=== PATIENT | female | born 1940 | race Caucasian/White ===

== ENCOUNTER → 2017-05-26 09:01 | Outpatient (CLI) | payer MEDICARE, OTHER, SELFPAY ==
[2017-05-26 11:05] LABS: Anion Gap 8 (5-15); BUN 14 mg/dL (7-18); BUN/Creat Ratio 19.6 RATIO (10-20); Chloride 104 mmol/L (98-107); Creatinine, Serum 0.71 mg/dL (0.55-1.02); EST Glomerular Filtration Rate 84 mL/min (>60); Est Glom Filt Rate - Afr Amer 102 mL/min (>60); Glucose 116 mg/dL (74-106); Potassium 3.6 mmol/L (3.5-5.1); Sodium Level 139 mmol/L (136-145)
== END ==
PROVIDERS: Family Provider Internal Medicine; PCP Internal Medicine; Visit Provider Internal Medicine
DX: E87.8 Other disorders of electrolyte and fluid balance, not elsewhere classified (principal)
CPT/HCPCS: 36415; 80048

== ENCOUNTER → 2020-10-12 15:15 | Outpatient (CLI) | payer MEDICARE, OTHER, SELFPAY ==
--- NOTE | 2020-10-12 15:25 | RAD_ITS ---
STUDY: X-RAY - LUMBAR SPINE REASON FOR EXAM: Female, 80 years old. BACK PAIN TECHNIQUE: 2 view(s) of the lumbar spine were obtained. COMPARISON: None FINDINGS: There is straightening of the normal lumbar lordosis. There is a minimal levoscoliosis of the lumbar spine. There is a normal alignment of the vertebrae. There is multilevel endplate spondylosis of the lumbar vertebrae. There is multi-level degenerative disc disease with multi-level disc space narrowing. Facet joint osteoarthritis. Degenerative changes of the sacroiliac joints. There is atherosclerotic calcification of the abdominal aorta without a demonstrated aneurysm. RAD/Lumbar Spine 2 or 3 Views IMPRESSION: Degenerative changes of the spine, as detailed above. Electronically Signed: Bakari Doherty MD at 9:38 EDT , Service support ,
== END ==
PROVIDERS: PCP Nurse Practitioner Adult Health; Referring Provider Anesthesiology Pain Medicine; Visit Provider Anesthesiology Pain Medicine
DX: M47.816 Spondylosis without myelopathy or radiculopathy, lumbar region (principal); M51.36 Other intervertebral disc degeneration, lumbar region; M48.061 Spinal stenosis, lumbar region without neurogenic claudication
CPT/HCPCS: 72100

== ENCOUNTER 2021-03-11 02:18 | Inpatient (IN) | payer MEDICARE, OTHER, SELFPAY ==
[2021-03-11] VITALS (15 sets, daily range): BP systolic 140–170; BP diastolic 80–100; PULSE 73–89; RESP 18–28; TEMP 36.1–36.6; O2SAT 88–97; BMI 16.5; BMI 16.0
--- NOTE | 2021-03-11 02:34 | EKG12_ITS ---
Test Reason : SOB Blood Pressure : / mmHG Vent. Rate : 085 BPM Atrial Rate : 085 BPM P-R Int : 112 ms QRS Dur : 072 ms QT Int : 338 ms P-R-T Axes : 075 050 062 degrees QTc Int : 402 ms Normal sinus rhythm Normal ECG Confirmed by JHONATHAN MARTÍNEZ, ECHO ([id number]), graphics editor SO POOLE ([id number]) on 03/12/2021 9:38:16 AM Referred By: PL Confirmed By:ECHO RING MD
--- NOTE | 2021-03-11 02:36 | ED.VIS.DYS ---
HPI History of Present Illness Chief Complaint: Shortness of Breath Informant: patient and family Narrative Narrative: It is hard to get some of the details out of this patient. She tends to give very short one-word answers to many even complex questions. History is obtained through both her and her son. This patient reports a history of bronchiectasis. However, I cannot get from her exactly how and when this was diagnosed. She does not know what medicines help it get better. She was in the hospital at [facility] for about 10 days recently. She was discharged about 2 weeks ago. She was evidently discharged on an inhaled antibiotic or possible antifungal. She was tested for Covid and it was negative. She has been vaccinated. She denies chest pain. She is on 2 L of home oxygen but that is new since discharge. She called EMS tonight because her breathing was getting worse. Has been worsening for several days. Her energy level is significantly down. Her breathing is worse despite home treatments. PFSH PFS Medical History Arthritis Cataracts, bilateral Hearing problem HTN (hypertension) IBS (irritable bowel syndrome) Rheumatoid arthritis Skin cancer Home Medications aspirin 81 mg PO DAILY@0800 07/13/16 [History Last Taken 07/12/16] coenzyme Q10 [Co Q-10] 100 mg PO DAILY 07/13/16 [History Last Taken 07/12/16] amiloride 5 mg-hydrochlorothiazide 50 mg tablet 0.5 tab PO QDAY #90 tab 07/07/17 [Rx Last Taken Unknown] nadolol 40 mg tablet 40 mg PO QDAY #90 tab 10/06/17 [Rx Last Taken Unknown] albuterol sulfate 2 puff INHALATION Q6H PRN 03/11/21 [History Last Taken Unknown] diltiazem HCl [Cardizem CD] 120 mg PO DAILY 03/11/21 [History Last Taken Unknown] Allergy/AdvReac Type Severity Reaction Status Date / Time levofloxacin [From Levaquin] Allergy Other Verified 03/11/21 02:25 Sulfa (Sulfonamide Allergy Swelling Verified 03/11/21 02:25 Antibiotics) narcotics AdvReac Mild Vomiting Uncoded 03/11/21 02:25 Family History Mother Myocardial infarction Father CVA (cerebral vascular accident) Social History Smoking Status: Former smoker alcohol intake: never substance use type: does not use what type of physical activity do you participate in: none ROS ROS ED Constitutional Constitutional ED: Denies chills or fever(s) ENT ENT ED: Denies rhinorrhea or sore throat Cardiovascular Cardiovascular: Denies chest pain Respiratory/Chest Respiratory/Chest: Reports cough, dyspnea, dyspnea on exertion and sputum Gastrointestinal Gastrointestinal: Denies diarrhea, nausea or vomiting Genitourinary Genitourinary ED: Denies dysuria Musculoskeletal Musculoskeletal: Denies myalgias Integumentary Denies rash Neurologic Neurologic: Denies headache(s) Endocrine Endocrinology: Denies polyuria Hematologic/Lymphatic Hematologic/Lymphatic: Denies easy bleeding or easy bruising Allergic/Immunologic Allergic/Immunologic ED: Denies mouth swelling or urticaria EXAM Physical Exam Const Vital Signs: 03/11/21 02:19 03/11/21 02:30 03/11/21 02:53 Temperature 97.8 F Temperature Source Temporal Pulse Rate 88 85 Respiratory Rate 20 H 21 H Respiratory Effort Normal Respiratory Pattern Tachypnea Blood Pressure 169/100 H Blood Pressure Mean 123 Pulse Ox 93 Oxygen Delivery Method Nasal Cannula Oxygen Flow Rate (L/min) 5 03/11/21 03:30 03/11/21 03:49 Temperature 97.9 F Temperature Source Temporal Pulse Rate 89 84 Respiratory Rate 28 H 23 H Respiratory Effort Respiratory Pattern Blood Pressure 170/99 H 140/80 H Blood Pressure Mean 122 100 Pulse Ox 94 92 Oxygen Delivery Method Nasal Cannula Nasal Cannula Oxygen Flow Rate (L/min) 4 4 Positive cachectic Constitutional Narrative: Patient looks thin and chronically ill. She also looks weak. She looks a bit worn out. She does have increased work of breathing. She is not sleepy or lethargic. General Appearance ED: cachectic Nutritional Appearance: cachectic HEENT atraumatic Eyes EOMs intact bilaterally Neck no meningeal signs and no JVD Resp Resp Narrative: Patient has diffuse coarse breath sounds. She has a very moist cough. Auscultation: rhonchi Cardio regular rate and regular rhythm GI non-tender Palpation: soft Back/Spine no CVA tenderness Extremity normal to inspection General Extremety ED: Negative for edema or tenderness General Extremity: Negative for edema Neuro oriented x3 Sensorium / Orientation: alert Psych mental status grossly normal Skin Rashes: no rashes MDM MDM MDM Narrative Medical decision making narrative: Patient's blood work show a high white count. However this is common for the patient based on some older labs. Electrolytes showed mild increased BUN to creatinine ratio but creatinine was normal. Troponin is negative. Lactate is normal. Covid test was positive at this time. Chest x-ray shows multilobar pneumonia. This might be due to Covid but also her bronchiectasis history likely contributes to this. I talk with her and her son. This patient is very weak. She is not really able to care for herself at home. She does live independently. She uses a Rollator to get around but this is been hard. Her appetite has been down. I do not think this patient would do well at home. She is on 2 L at home normally but she is now on 4-5 L nasal cannula here. I discussed case with the hospitalist. Patient also is not to be intubated. The son is bringing in her DNR paperwork at home which hopefully has more details also. Lab Data Attestation: I reviewed the patient's lab results. Labs: Laboratory Results - last 24 hr 03/11/21 03/11/21 03/11/21 02:40 02:40 02:40 WBC 17.3 H RBC 3.75 L Hgb 10.7 L Hct 34.2 L MCV 91.2 MCH 28.5 MCHC 31.3 L RDW Std Deviation 55.1 H RDW Coeff of Pk 16.9 H Plt Count 513 H MPV 9.6 Immature Gran % (Auto) 0.600 Neut % (Auto) 79.1 H Lymph % (Auto) 11.1 L [place] % (Auto) 8.3 Eos % (Auto) 0.5 Baso % (Auto) 0.4 Absolute Neuts (auto) 13.7 H Absolute Lymphs (auto) 1.92 Nucleated RBC % 0.1 Sodium 136 Potassium 3.9 Chloride 95 L Carbon Dioxide 35.0 H Anion Gap 6 BUN 10 Creatinine 0.38 L Estim Creat Clear Calc 29.53 Est GFR (MDRD) Af Amer 211 Est GFR (MDRD) Non-Af 175 BUN/Creatinine Ratio 26.6 H Glucose 146 H Lactic Acid 1.4 Calcium 9.3 Troponin I High Sens 10 Radiography Diagnostic Testing: Clinical Impression(s) from Imaging Studies Chest X-Ray 03/11/21 03:15 IMPRESSION: Bilateral multilobar pneumonia. Follow to resolution. Electronically Signed: Osvaldo Armenta MD at 3:31 EST Tel , Service support , EKG Initial EKG: Comments: EKG done for dyspnea read by me shows sinus rhythm with overall rate of 85. No ectopy. No acute ST elevation or depression. [place] interval, QRS duration and QTc normal. The EKG is similar to prior from 14 July 2016. Discharge Plan Dx/Rx/DC Orders Clinical Impression: Acute and chronic respiratory failure with hypoxia, Pneumonia due to 2019 novel coronavirus, Declining functional status Disposition Disposition: Acute Care Hospital [facility]
[2021-03-11] MEDS: MethylPREDNISolone 125 MG/2 ML Vial IV (02:42)
[2021-03-11 02:52] LABS: Absolute Lymphocyte Count 1.92 X10^3/uL (0.83-4.51); Absolute Neutrophil Count 13.7 X10^3/uL (2.0-7.7); Basophil# 0.07 X10^3/uL; Basophil% 0.4 % (0-1); Eosinophil# 0.09 X10^3/uL; Eosinophils% 0.5 % (0-5); Hematocrit 34.2 % (37-47); Hemoglobin 10.7 g/dL (12.0-15.0); Lymphocyte # 1.92 X10^3/ul (0.83-4.51); Lymphocyte % 11.1 % (19-41); Mean Corp Hgb Conc 31.3 g/dL (32-36); Mean Corpuscular Hgb 28.5 pg (27.0-32.0); Mean Corpuscular Volume 91.2 fL (81-99); Mean Platelet Vol. 9.6 fl (6.2-12.0); Monocyte# 1.44 X10^3/uL; Monocyte% 8.3 % (0-10); NRBC Flagged by Analyzer 0.1 % (0-5); Neutrophil # 13.67 X10^3/uL (2.7-7.7); Neutrophil % 79.1 % (47-70); Platelet Count 513 K/mm3 (150-450); RBC Distribution Width CV 16.9 % (11.6-14.6); RBC Distribution Width SD 55.1 fl (35.1-43.9); Red Blood Count 3.75 M/mm3 (4.2-5.4); White Blood Count 17.3 K/mm3 (4.4-11.0)
[2021-03-11] MEDS: Albuterol 2.5 MG/3 ML VIAL.NEB. INHALATION (02:53)
[2021-03-11] MEDS: Ipratropium/Albuterol Sulfate 3 ML AMPUL.NEB INHALATION ×2 (02:53→16:49)
--- NOTE | 2021-03-11 03:15 | RAD_ITS ---
EXAM: XR CHEST, 1 VIEW CLINICAL INDICATION: cough TECHNIQUE: Frontal view of the chest. This report was created using [employer] report generation technology. COMPARISON: None. FINDINGS: LUNGS AND PLEURAL SPACES: Bilateral multilobar pneumonia. No significant pleural effusion or pneumothorax. Dilated central pulmonary arteries suggest pulmonary hypertension. HEART: Unremarkable. Cardiac silhouette not enlarged. MEDIASTINUM: Central airways and mediastinal contour are unremarkable. BONES/JOINTS: Degenerative changes of the spine. No unusual lytic or sclerotic lesions of bone. SOFT TISSUES: Unremarkable. VASCULATURE: Atherosclerotic calcifications of the nonenlarged thoracic arch. RAD/Chest 1 View (Portable) IMPRESSION: Bilateral multilobar pneumonia. Follow to resolution. Electronically Signed: Osvaldo Armenta MD at 3:31 EST Tel , Service support ,
[2021-03-11 03:18] LABS: Anion Gap 6 (5-15); BUN 10 mg/dL (7-18); BUN/Creat Ratio 26.6 RATIO (10-20); Calcium,Total 9.3 mg/dL (8.5-10.1); Chloride 95 mmol/L (98-107); Creatinine, Serum 0.38 mg/dL (0.55-1.02); EST Glomerular Filtration Rate 175 mL/min (>60); Est Glom Filt Rate - Afr Amer 211 mL/min (>60); Estimated Creatinine Clearance 29.53 ml/min; Glucose 146 mg/dL (74-106); Potassium 3.9 mmol/L (3.5-5.1); Sodium Level 136 mmol/L (136-145); Troponin-I HS 10 pg/mL (3.0-54.0)
[2021-03-11 03:26] LABS: Lactic Acid 1.4 mmol/L (0.4-1.9)
[2021-03-11] MEDS: dexAMETHasone 4 MG/ML Vial 6 MG IV ×2 (03:27→10:07)
--- NOTE | 2021-03-11 05:03 | HP.PCM.HOS_ITS ---
HPI - General General Date of Admission: 03/11/21 Date of Service: 03/11/21 Chief Complaint: Increased shortness of breath x2 days, cough HPI Narrative ERICKA SMITH, is a 80 F who presents to the emergency room at [facility] with chief complaint of increased shortness of breath over the last 2 to 3 days, she is on chronic oxygen at home for bronchiectasis, she was recently in [facility] in [facility] 2 weeks ago for pneumonia. Patient denies any chills, she also complained of generalized weakness however. Labs done in the emergency room include a CBC which shows an elevated white blood cell count at 17.3, hemoglobin was 10.7, chemistry profile was remarkable for glucose of 146, and patient's rapid Covid test was positive-patient is vaccinated for COVID-19. Chest x-ray shows bilateral multilobar pneumonia. Patient states she does not want intubation or resuscitation, she will be admitted to [facility] for COVID-19 pneumonia and acute on chronic respiratory failure. Patient states she is not opposed to taking remdesivir. [facility] Medical History Arthritis Cataracts, bilateral Hearing problem HTN (hypertension) IBS (irritable bowel syndrome) Rheumatoid arthritis Skin cancer Home Medications aspirin 81 mg PO DAILY@0800 07/13/16 [History Last Taken 07/12/16] coenzyme Q10 [Co Q-10] 100 mg PO DAILY 07/13/16 [History Last Taken 07/12/16] amiloride 5 mg-hydrochlorothiazide 50 mg tablet 0.5 tab PO QDAY #90 tab 07/07/17 [Rx Last Taken Unknown] nadolol 40 mg tablet 40 mg PO QDAY #90 tab 10/06/17 [Rx Last Taken Unknown] albuterol sulfate 2 puff INHALATION Q6H PRN 03/11/21 [History Last Taken Unknown] diltiazem HCl [Cardizem CD] 120 mg PO DAILY 03/11/21 [History Last Taken Unknown] Allergy/AdvReac Type Severity Reaction Status Date / Time levofloxacin [From Levaquin] Allergy Other Verified 03/11/21 02:25 Sulfa (Sulfonamide Allergy Swelling Verified 03/11/21 02:25 Antibiotics) narcotics AdvReac Mild Vomiting Uncoded 03/11/21 02:25 Family History Mother Myocardial infarction Father CVA (cerebral vascular accident) Social History Smoking Status: Former smoker alcohol intake: never substance use type: does not use what type of physical activity do you participate in: none ROS Constitutional Constitutional: Reports fatigue, malaise and weakness; Denies anorexia, change in weight, fever(s) or night sweats Eyes Eyes: Denies blurry vision, change in vision, discharge from eye(s) or eye pain ENT HEENT: Denies abnormal hearing or dysphagia Cardiovascular Cardiovascular: Reports dyspnea on exertion; Denies chest pain, claudication, edema, lightheadedness, orthopnea or palpitations Respiratory/Chest Respiratory/Chest: Reports cough, shortness of breath at rest and shortness of breath with exertion; Denies hemoptysis Gastrointestinal Gastrointestinal: Denies abdominal pain, constipation, diarrhea, hematemesis, hematochezia, melena, nausea or vomiting Genitourinary Genitourinary: Denies dysuria, hematuria, urinary frequency, urinary hesitancy, urinary incontinence or urinary urgency Musculoskeletal Musculoskeletal: Denies back pain, joint pain, joint stiffness, joint swelling, myalgias or neck pain Neurologic Neurologic: Denies abnormal gait, abnormal speech, confusion, dizziness, focal weakness, headache(s), loss of vision, numbness, other visual disturbances, paresthesias, syncope or tingling Psychiatric Psychiatric: Denies anxiety, cognitive impairment, depression, irritability, mood swings or suicidal ideation Endocrine Endocrinology: Denies change in body appearance, cold intolerance, excessive sweating, heat intolerance, polydipsia or polyuria Hematologic/Lymphatic Hematologic/Lymphatic: Denies none, anemia, easy bleeding, easy bruising or lymphadenopathy Allergic/Immunologic Allergic/Immunologic: Denies rhinitis, urticaria, eczemia or asthma Vital Signs Vital Signs Vital Signs: 03/11/21 02:19 03/11/21 02:30 03/11/21 02:53 Temperature 97.8 F Temperature Source Temporal Pulse Rate 88 85 Respiratory Rate 20 H 21 H Respiratory Effort Normal Respiratory Pattern Tachypnea Blood Pressure 169/100 H Blood Pressure Mean 123 Pulse Ox 93 Oxygen Delivery Method Nasal Cannula Oxygen Flow Rate (L/min) 5 03/11/21 03:30 03/11/21 03:49 Temperature 97.9 F Temperature Source Temporal Pulse Rate 89 84 Respiratory Rate 28 H 23 H Respiratory Effort Respiratory Pattern Blood Pressure 170/99 H 140/80 H Blood Pressure Mean 122 100 Pulse Ox 94 92 Oxygen Delivery Method Nasal Cannula Nasal Cannula Oxygen Flow Rate (L/min) 4 4 Weight Weight: 42.4 kg Body Mass Index (BMI) 16.5 Physical Exam Const alert, oriented x3 and no apparent distress Constitutional Narrative: Patient appears frail and older than her stated age General Appearance: cooperative, well kempt and well developed Orientation / Consciousness: awake, oriented to person, oriented to place and oriented to time HEENT normocephalic, head/scalp atraumatic, hearing grossly normal bilaterally and moist oral mucous membranes Eyes PERRL, EOMs intact bilaterally and conjunctivae normal Neck nuchal rigidity, supple, no JVD, thyroid normal and no carotid bruits General: trachea midline Resp no retractions and no use of accessory muscles Resp Narrative: Patient has expiratory rhonchi over all lung esparza Auscultation: Negative for rales, rhonchi or wheezes Cardio regular rate, regular rhythm, S1 normal heart sound, S2 normal heart sound, no murmurs, no rub and no gallops GI normal to inspection, nondistended, normoactive bowel sounds, soft to palpation, non-tender and non-distended Extremity no clubbing, cyanosis or edema Skin no rashes or lesions noted and skin turgor normal Skin Narrative: Patient has a stage II pressure injury over her coccyx area, this is approximately 1 cm in diameter, edges appear sharp and there does not appear to be any drainage from the area, patient also has a pressure injury area over her left heel/ankle area approximately half centimeter in diameter General Skin Exam: no breakdown Neuro oriented x3, CN's II-XII intact bilaterally, no focal motor deficits and no sensory deficits noted Sensorium / Orientation: awake and alert Speech: speech normal Psych thought process normal and affect normal Results Lab / Micro Data Result Diagrams: 03/11/21 02:40 03/11/21 02:40 Labs: Laboratory Results - last 24 hr 03/11/21 02:40: WBC 17.3 H, RBC 3.75 L, Hgb 10.7 L, Hct 34.2 L, MCV 91.2, MCH 28.5, MCHC 31.3 L, RDW Std Deviation 55.1 H, RDW Coeff of Pk 16.9 H, Plt Count 513 H, MPV 9.6, Immature Gran % (Auto) 0.600, Neut % (Auto) 79.1 H, Lymph % (Auto) 11.1 L, [place] % (Auto) 8.3, Eos % (Auto) 0.5, Baso % (Auto) 0.4, Absolute Neuts (auto) 13.7 H, Absolute Lymphs (auto) 1.92, Nucleated RBC % 0.1 03/11/21 02:40: Sodium 136, Potassium 3.9, Chloride 95 L, Carbon Dioxide 35.0 H, Anion Gap 6, BUN 10, Creatinine 0.38 L, Estim Creat Clear Calc 29.53, Est GFR (MDRD) Af Amer 211, Est GFR (MDRD) Non-Af 175, BUN/Creatinine Ratio 26.6 H, Glucose 146 H, Calcium 9.3, Troponin I High Sens 10 03/11/21 02:40: Lactic Acid 1.4 Micro: Microbiology 03/11/21 02:37 Nasal Secretion SARS-CoV-2 Antigen (Rapid) - Final SARS-CoV-2 (COVID 19) Radiology Impression Chest X-Ray 03/11/21 03:15 IMPRESSION: Bilateral multilobar pneumonia. Follow to resolution. Electronically Signed: Osvaldo Armenta MD at 3:31 EST Tel , Service support , Assessment & Plan Assessment/Plan (1) Pneumonia due to 2019 novel coronavirus: PLAN: 1. COVID-19 pneumonia-patient will be admitted to [facility] 3, she will receive IV remdesivir and IV dexamethasone. #2 acute on chronic hypoxic respiratory failure-patient's pulse ox will be roro tored, patient does not want to be intubated, she does not want to be resuscitated. #3 essential hypertension #4 pressure ulcerations of the sacrum and left ankle area-DuoDERM will be placed over these areas #5 generalized debility-patient will be seen by PT and OT Charges/Coding Visit Charges Inpatient E&M: 36042 Init Hosp L3
[2021-03-11] MEDS: Ondansetron 4 MG/2 ML Vial IV (06:56)
[2021-03-11] MEDS: 0.9% Saline Lock 10 ML Syringe IV ×2 (06:57→07:53)
[2021-03-11] MEDS: dilTIAZem CD 120 MG Capsule PO (10:07)
[2021-03-11] MEDS: Nadolol 40 MG Tablet PO (10:07)
--- NOTE | 2021-03-11 11:39 | PN.HOSP_ITS ---
Subjective Subjective Patient seen and examined. She was admitted in the early hours of this morning with a complaint of shortness of breath, and is being managed for acute on chronic hypoxic respiratory failure due to covid. Patient had no complaints at time of review. Shortness of breath is improving. Review of systems is otherwise negative. She is on 4L of oxygen; she is usually on 2L at home. Objective Data Objective Data Vital Signs: Vital Signs Temp Pulse Resp BP Pulse Ox 97.0 F L 88 22 H 150/80 H 95 03/11/21 10:17 03/11/21 10:17 03/11/21 10:17 03/11/21 10:03/11/21 11:21 Oxygen Flow Rate (L/min) 4 Oxygen Delivery Method Non-Rebreather @ 15L/min Weight: 90 lb 2.705 oz Body Mass Index (BMI) 16.0 Intake & Output: Intake and Output for Last 24 Hours 03/09/21 03/10/21 03/11/21 23:59 23:59 23:59 Intake Total 250 / 250 Output Total 100 / 100 Balance 150 / 150 Lab / Micro Data Result Diagrams: 03/11/21 02:40 03/11/21 02:40 Labs: Laboratory Results - last 24 hr 03/11/21 02:40: WBC 17.3 H, RBC 3.75 L, Hgb 10.7 L, Hct 34.2 L, MCV 91.2, MCH 28.5, MCHC 31.3 L, RDW Std Deviation 55.1 H, RDW Coeff of Pk 16.9 H, Plt Count 513 H, MPV 9.6, Immature Gran % (Auto) 0.600, Neut % (Auto) 79.1 H, Lymph % (Auto) 11.1 L, [place] % (Auto) 8.3, Eos % (Auto) 0.5, Baso % (Auto) 0.4, Absolute Neuts (auto) 13.7 H, Absolute Lymphs (auto) 1.92, Nucleated RBC % 0.1 03/11/21 02:40: Sodium 136, Potassium 3.9, Chloride 95 L, Carbon Dioxide 35.0 H, Anion Gap 6, BUN 10, Creatinine 0.38 L, Estim Creat Clear Calc 29.53, Est GFR (MDRD) Af Amer 211, Est GFR (MDRD) Non-Af 175, BUN/Creatinine Ratio 26.6 H, Glucose 146 H, Calcium 9.3, Troponin I High Sens 10 03/11/21 02:40: Lactic Acid 1.4 Micro: Microbiology 03/11/21 02:37 Nasal Secretion SARS-CoV-2 Antigen (Rapid) - Final SARS-CoV-2 (COVID 19) Radiography Diagnostic Testing: Radiology Impression Chest X-Ray 03/11/21 03:15 IMPRESSION: Bilateral multilobar pneumonia. Follow to resolution. Electronically Signed: Osvaldo Armenta MD at 3:31 EST Tel , Service support , Physical Exam Const alert, oriented x3 and no apparent distress Exam Limitations: no limitations Nutritional Appearance: cachectic HEENT head/scalp atraumatic and moist oral mucous membranes Head and Scalp: normocephalic Eyes PERRL Neck no lymphadenopathy and supple Resp Resp Narrative: diminished breath sounds bibasally, no wheezes or crackles. On 4L of oxygen. Cardio regular rate, regular rhythm, S1 normal heart sound and S2 normal heart sound GI normal to inspection, nondistended, normoactive bowel sounds, soft to palpation, non-tender and non-distended Extremity normal to inspection, full ROM and no clubbing, cyanosis or edema Peripheral Pulses: Yes pulses 2+ throughout Skin no rashes or lesions noted Neuro oriented x3, CN's II-XII intact bilaterally and moves all extremities Sensorium / Orientation: awake and alert Psych affect normal Assessment & Plan Assessment/Plan (1) Acute and chronic respiratory failure with hypoxia: (2) Pneumonia due to 2019 novel coronavirus: PLAN: #Acute on chronic hypoxic respiratory failure due to COVID 19 pneumonia * currently on 4L of oxygen, with baseline of 2L of oxygen usually * on decadron and remdesivir * titrate oxygen to maintain sats .90% * breathing treatment with bronchodilators * #Hypertension:on amiloride/HCTZ #Afib: on cardizem. #Pressure ulcers: present on admission. on sacrum and left ankle. Consult wound care #Severe malnutrition * BMI is 16. Consult nutrition. * #Debility due to COVID nad general illness: PT/OT on board. Fall precautions. DVT prophylaxis: heparin
--- NOTE | 2021-03-11 12:13 | PCS.PANDOC ---
PANDEMIC DOCUMENTATION INITIATED: Date: 03/11/21 Time: 0700
[2021-03-11] MEDS: Heparin Injection (Vial) 5,000 UNIT/ML VIAL 5000 UNIT SC ×2 (14:59→21:02)
--- NOTE | 2021-03-11 20:22 | NURSING ---
Pt C/O generalized arthritic pain. Only has tylenol ordered prn which pt states does not help. States she takes hydrocodone @ home prn. Dr García notified & new order received.
[2021-03-11] MEDS: HYDROcodone Bitartrate/Apap 5/325 Tablet PO (20:46)
--- NOTE | 2021-03-11 20:50 | NURSING ---
O2 INCREASED TO 5L NC
[2021-03-12] VITALS (13 sets, daily range): BP systolic 147–191; BP diastolic 66–99; PULSE 78–86; RESP 18–30; TEMP 36.2–36.3; O2SAT 92–99
[2021-03-12] MEDS: Ipratropium/Albuterol Sulfate 3 ML AMPUL.NEB INHALATION ×4 (01:38→22:54)
[2021-03-12] MEDS: Heparin Injection (Vial) 5,000 UNIT/ML VIAL 5000 UNIT SC ×3 (05:34→20:14)
[2021-03-12 06:45] LABS: Hematocrit 31.1 % (37-47); Hemoglobin 9.8 g/dL (12.0-15.0); Mean Corp Hgb Conc 31.5 g/dL (32-36); Mean Corpuscular Hgb 28.4 pg (27.0-32.0); Mean Corpuscular Volume 90.1 fL (81-99); Platelet Count 560 K/mm3 (150-450); RBC Distribution Width CV 16.7 % (11.6-14.6); Red Blood Count 3.45 M/mm3 (4.2-5.4); White Blood Count 17.8 K/mm3 (4.4-11.0)
[2021-03-12 07:12] LABS: ALB/GLOB Ratio 0.4 RATIO (0.9-2.4); AST(SGOT) 16 U/L (15-37); Alanine Aminotransfer ALT/SGPT 19 U/L (13-56); Albumin, Serum 1.8 g/dL (3.2-5.0); Alkaline Phosphatase 105 U/L (45-117); Anion Gap 5 (5-15); BUN 17 mg/dL (7-18); BUN/Creat Ratio 42.8 RATIO (10-20); Calcium,Total 9.4 mg/dL (8.5-10.1); Chloride 95 mmol/L (98-107); EST Glomerular Filtration Rate 164 mL/min (>60); Est Glom Filt Rate - Afr Amer 198 mL/min (>60); Estimated Creatinine Clearance 28.49 ml/min; Globulin 5.1 g/dL (2.2-4.2); Glucose 177 mg/dL (74-106); Protein, Total 6.9 g/dL (6.4-8.2); Sodium Level 134 mmol/L (136-145)
[2021-03-12] MEDS: HYDROcodone Bitartrate/Apap 5/325 Tablet PO ×2 (11:19→21:40)
[2021-03-12] MEDS: Ondansetron 4 MG/2 ML Vial IV ×2 (11:20→20:15)
[2021-03-12] MEDS: Aspirin 81 MG TAB.CHEW PO (11:23)
[2021-03-12] MEDS: dilTIAZem CD 120 MG Capsule PO (11:23)
[2021-03-12] MEDS: Nadolol 40 MG Tablet PO (11:23)
[2021-03-12] MEDS: dexAMETHasone 4 MG/ML Vial 6 MG IV (11:24)
--- NOTE | 2021-03-12 12:25 | CASEMGMT ---
SAM SÁNCHEZ Assessment: Face to Face with pt for initial transition planning/care coordination assessment. SAM SÁNCHEZ introduced self and role at [facility], pt voices understanding and consents to assessment. Pt is A/O x4 and answers all questions appropriately at this time. Pt sitting up in bed with O2 on in no distress. Pt son, Addy at bedside. Care providers, pharmacy, and demographics verified/updated. Admitting Dx: COVID 19 PNA PCP: Rosetta Rapp NP Specialists:Pardeep, cardio; Cynthia Ivey, pulm; Martina, pain mgmt Preferred Pharmacy: [facility] Insurance: MCR, [employer] Sr Supplement Prescription Benefit: yes LW/HPOA: Pt son states he just brought in LW/DPOA today and gave to real estate legal secretary. States pt dtr Kandi Beauchamp is DPOA. LNOK: Kandi Beauchamp, dtr; Dionisio Martinez, son; Addy Martinez, son Living Arrangements: Pt lives alone in a single story house with 2 steps to enter from the side and 3 steps to enter from the front, both have rails. Pt needs assistance with ADL's and IADL's. Pt has a hired cg named Fransisca who visits 5 hours per day Mon-Fri. Pt sons come to her home each evening. Pt is alone only at night. Transportation: Pt family provides pt with transportation to medical appts. DME/HHC/SNF: Pt has a pulse ox, adjustable bed with rails, walker, rollator and O2 at 2L cont through [employer]. Pt has had O2 for 2 wks. Pt has portable O2 and pt son states he will bring in for pt to go home on. Pt states she was first tested for COVID at [facility] ER. She plans to move to her son's home ([place]is[place]) after hospitalization. This was in process prior to hospitalization, but had to be postponed. Pt is able to quarantine at her son's by using separate bedrooms and bathrooms. Pt states no concerns with going to son's home at time of dc. Pt states no further concerns/needs. CM to follow. Advised pt to ask CM if any further question/concerns/needs arise, voices understanding. Pt Goal: DC to son's home with private cg Plan: DC to son's home with private cg and will follow for HHC, updated script for O2.
--- NOTE | 2021-03-12 16:31 | PN.HOSP_ITS ---
Subjective Subjective Follow-up with acute hypoxic respiratory failure/COVID-19 pneumonia; Patient was seen and examined. She is on 2 L of oxygen. Denies any fever or chills. Objective Data Objective Data Vital Signs: Vital Signs Temp Pulse Resp BP Pulse Ox 97.2 F L 79 18 147/66 H 98 03/12/21 14:07 03/12/21 14:07 03/12/21 14:07 03/12/21 14:07 03/12/21 15:23 Oxygen Flow Rate (L/min) 2 Oxygen Delivery Method Nasal Cannula Weight: 40.9 kg Body Mass Index (BMI) 16.0 Intake & Output: Intake and Output for Last 24 Hours 03/10/21 03/11/21 03/12/21 23:59 23:59 23:59 Intake Total 830 / 830 250 / 250 Output Total 500 / 500 Balance 330 / 330 250 / 250 Lab / Micro Data Result Diagrams: 03/12/21 05:49 03/12/21 05:49 Labs: Laboratory Results - last 24 hr 03/12/21 05:49: WBC 17.8 H, RBC 3.45 L, Hgb 9.8 L, Hct 31.1 L, MCV 90.1, MCH 28.4, MCHC 31.5 L, RDW Std Deviation 54.0 H, RDW Coeff of Pk 16.7 H, Plt Count 560 H, MPV 10.0 03/12/21 05:49: Sodium 134 L, Potassium 4.0, Chloride 95 L, Carbon Dioxide 34.0 H, Anion Gap 5, BUN 17, Creatinine 0.40 L, Estim Creat Clear Calc 28.49, Est GFR (MDRD) Af Amer 198, Est GFR (MDRD) Non-Af 164, BUN/Creatinine Ratio 42.8 H, Glucose 177 H, Calcium 9.4, Total Bilirubin 0.20, AST 16, ALT 19, Alkaline Phosphatase 105, Total Protein 6.9, Albumin 1.8 L, Globulin 5.1 H, A lbumin/Globulin Ratio 0.4 L Micro: Microbiology 03/11/21 02:37 Nasal Secretion SARS-CoV-2 Antigen (Rapid) - Final SARS-CoV-2 (COVID 19) Physical Exam Narrative Physical exam: General: Alert, Oriented x3, Cooperative, No apparent distress, appears very frail, on 2 L of oxygen HEENT: Atraumatic Oral: Moist Mucosa Neck: Supple Lungs: Clear to auscultation Cardiovascular: HS I+II, regular, no murmurs Abdomen: Bowel Sounds Present, Soft, Non Tender Extremities: No edema Assessment & Plan Assessment/Plan (1) Acute and chronic respiratory failure with hypoxia: (2) Pneumonia due to 2019 novel coronavirus: PLAN: 1. Acute on chronic hypoxic respiratory failure secondary to acute COVID 19 pneumonia, Appears to be improving; currently on 2 L of oxygen Continue on Decadron, remdesivir as well as breathing treatment 2. Acute left heel infection/decubitus ulcer, left heel reportedly has a lot of pus Consult podiatry, will start on empiric Unasyn, follow-up on cultures taken by wound RN 3. Decubitus ulcers, unstageable, present on admission, wound RN consulted 4. 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 Rest of chronic medical conditions including Hypertension, chronic atrial fibrillation Meds reviewed:on amiloride/HCTZ 6. Debility related to the above, PT and OT to evaluate and treat Charges/Coding Visit Charges Inpatient E&M: 96335 Subs Hosp L2
--- NOTE | 2021-03-12 18:44 | CON.PCM_ITS ---
Assessment & Plan Assessment/Plan (1) Ulcer of left lower extremity with fat layer exposed: PLAN: I reviewed and discussed her case today. Her participation is questionable. She was reassured that no infection signs are noted. I recommend proceeding forward with wound care. The following work up and care recommendations were made: Dressing: Change daily with Santyl applied nickel thickness with Mepilex Wash: Antibacterial soap and water Offload: foam offloading boot recommended. I will see if this can be ordered at the hospital facility at this time. Vascular: Palpable pulses noted. There is no signs of critical limb ischemia Nutritional supplementation recommended to optimize healing. Thank you for the consultation. I will follow her closely on a weekly basis while in house. She can follow-up with the wound healing center at discharge. Please do not hesitate to call if you have any questions. Sharona Valentine DPM, [facility] [phone] HPI Consult Data Date of Consult: 03/12/21 HPI Narrative HPI Narrative: ERICKA SMITH, is a 80 F female hospitalized for Covid related pneumonia. I saw her bedside this evening for an ulcer to her lateral left ankle. She is intermittently sleeping during the exam and is unable to participate. Chart review was performed. [facility] Medical History Arthritis Cataracts, bilateral Hearing problem HTN (hypertension) IBS (irritable bowel syndrome) Rheumatoid arthritis Skin cancer Home Medications coenzyme Q10 [Co Q-10] 100 mg PO DAILY 07/13/16 [History Last Taken 07/12/16] amiloride 5 mg-hydrochlorothiazide 50 mg tablet 0.5 tab PO QDAY #90 tab 07/07/17 [Rx Last Taken Unknown] nadolol 40 mg tablet 40 mg PO QDAY #90 tab 10/06/17 [Rx Last Taken Unknown] albuterol sulfate 2 puff INHALATION Q6H PRN 03/11/21 [History Last Taken Unknown] diltiazem HCl [Cardizem CD] 120 mg PO DAILY 03/11/21 [History Last Taken Unknown] Allergy/AdvReac Type Severity Reaction Status Date / Time levofloxacin [From Levaquin] Allergy Other Verified 03/11/21 02:25 Sulfa (Sulfonamide Allergy Swelling Verified 03/11/21 02:25 Antibiotics) narcotics AdvReac Mild Vomiting Uncoded 03/11/21 02:25 Family History Mother Myocardial infarction Father CVA (cerebral vascular accident) Social History Smoking Status: Former smoker alcohol intake: never substance use type: does not use what type of physical activity do you participate in: none Physical Exam Const alert and oriented x3 General Appearance: cooperative HEENT normocephalic Extremity Extremity Narrative: No calf tenderness 2/4 PT and DP pulses bilateral. Capillary fill time brisk to all digits. Muscle wasting noted General Extremity: edema and no tenderness to palpation of joints or extremities; Negative for cyanosis Skin Skin Narrative: no purulence, no streaking, no odor, no infection. Skin discontinuity to lateral left ankle measures 6 x 6 x 2 mm with deep capsular exposure. There is no purulence, necrosis, redness or streaking. Her adjacent skin is hairless and atrophic. General Skin Exam: Negative for erythema Neuro Neuro Narrative: lack of normal epicritic sensation via light touch is consistent with neuropathy status Psych cooperative and affect normal Lab / Micro Data Result Diagrams: 03/12/21 05:49 03/12/21 05:49 Labs: Laboratory Results - last 24 hr 03/12/21 05:49: WBC 17.8 H, RBC 3.45 L, Hgb 9.8 L, Hct 31.1 L, MCV 90.1, MCH 28.4, MCHC 31.5 L, RDW Std Deviation 54.0 H, RDW Coeff of Pk 16.7 H, Plt Count 560 H, MPV 10.0 03/12/21 05:49: Sodium 134 L, Potassium 4.0, Chloride 95 L, Carbon Dioxide 34.0 H, Anion Gap 5, BUN 17, Creatinine 0.40 L, Estim Creat Clear Calc 28.49, Est GFR (MDRD) Af Amer 198, Est GFR (MDRD) Non-Af 164, BUN/Creatinine Ratio 42.8 H, Glucose 177 H, Calcium 9.4, Total Bilirubin 0.20, AST 16, ALT 19, Alkaline Phosphatase 105, Total Protein 6.9, Albumin 1.8 L, Globulin 5.1 H, Albumin/Globulin Ratio 0.4 L
[2021-03-12] MEDS: 0.9% Saline Lock 10 ML Syringe IV ×2 (20:15→21:44)
[2021-03-12] MEDS: hydrALAZINE 20 MG/ML Vial IV (21:40)
[2021-03-12] MEDS: LORazepam 2 MG/ML Syringe 0.5 MG IV (23:26)
[2021-03-13] VITALS (9 sets, daily range): BP systolic 130–185; BP diastolic 60–119; PULSE 70–86; RESP 16–24; TEMP 36.2–36.6; O2SAT 93–97
[2021-03-13] MEDS: Heparin Injection (Vial) 5,000 UNIT/ML VIAL 5000 UNIT SC ×3 (05:59→20:48)
[2021-03-13] MEDS: Ipratropium/Albuterol Sulfate 3 ML AMPUL.NEB INHALATION ×3 (06:54→19:51)
[2021-03-13] MEDS: Aspirin 81 MG TAB.CHEW PO (10:02)
[2021-03-13] MEDS: dexAMETHasone 4 MG/ML Vial 6 MG IV (10:02)
[2021-03-13] MEDS: Nadolol 40 MG Tablet PO (10:04)
[2021-03-13] MEDS: dilTIAZem CD 120 MG Capsule PO (10:04)
[2021-03-13] MEDS: Collagenase 30gm Tube 1 APPLIC TOPICAL (10:05)
[2021-03-13 10:39] LABS: Hematocrit 33.2 % (37-47); Hemoglobin 10.5 g/dL (12.0-15.0); Mean Corp Hgb Conc 31.6 g/dL (32-36); Mean Corpuscular Hgb 28.4 pg (27.0-32.0); Mean Corpuscular Volume 89.7 fL (81-99); Mean Platelet Vol. 9.7 fl (6.2-12.0); Platelet Count 451 K/mm3 (150-450); RBC Distribution Width SD 54.1 fl (35.1-43.9); White Blood Count 24.8 K/mm3 (4.4-11.0)
[2021-03-13 11:33] LABS: ALB/GLOB Ratio 0.5 RATIO (0.9-2.4); AST(SGOT) 27 U/L (15-37); Alanine Aminotransfer ALT/SGPT 33 U/L (13-56); Albumin, Serum 1.9 g/dL (3.2-5.0); Alkaline Phosphatase 125 U/L (45-117); Anion Gap 5 (5-15); BUN 18 mg/dL (7-18); BUN/Creat Ratio 50.4 RATIO (10-20); Calcium,Total 9.1 mg/dL (8.5-10.1); Chloride 96 mmol/L (98-107); Creatinine, Serum 0.36 mg/dL (0.55-1.02); EST Glomerular Filtration Rate 185 mL/min (>60); Est Glom Filt Rate - Afr Amer 224 mL/min (>60); Estimated Creatinine Clearance 28.49 ml/min; Globulin 4.1 g/dL (2.2-4.2); Glucose 157 mg/dL (74-106); Potassium 3.5 mmol/L (3.5-5.1); Sodium Level 138 mmol/L (136-145)
--- NOTE | 2021-03-13 13:31 | PN.HOSP_ITS ---
Subjective Subjective Follow-up with acute hypoxic respiratory failure/COVID-19 pneumonia; Patient was seen and examined. She is on 4 L of oxygen. Denies any fever or chills. Objective Data Objective Data Vital Signs: Vital Signs Temp Pulse Resp BP Pulse Ox 97.1 F L 70 16 185/81 H 95 03/13/21 09:52 03/13/21 12:10 03/13/21 12:10 03/13/21 09:52 03/13/21 09:52 Oxygen Flow Rate (L/min) 4 Oxygen Delivery Method Nasal Cannula Weight: 40.9 kg Body Mass Index (BMI) 16.0 Intake & Output: Intake and Output for Last 24 Hours 03/11/21 03/12/21 03/13/21 23:59 23:59 23:59 Intake Total 830 / 830 362 / 362 702 / 702 Output Total 500 / 500 700 / 700 Balance 330 / 330 362 / 362 2 / 2 Lab / Micro Data Result Diagrams: 03/13/21 10:23 03/13/21 10:23 Labs: Laboratory Results - last 24 hr 03/13/21 10:23: WBC 24.8 H, RBC 3.70 L, Hgb 10.5 L, Hct 33.2 L, MCV 89.7, MCH 28.4, MCHC 31.6 L, RDW Std Deviation 54.1 H, RDW Coeff of Pk 17.0 H, Plt Count 451 H, MPV 9.7 03/13/21 10:23: Sodium 138, Potassium 3.5, Chloride 96 L, Carbon Dioxide 37.0 H, Anion Gap 5, BUN 18, Creatinine 0.36 L, Estim Creat Clear Calc 28.49, Est GFR (MDRD) Af Amer 224, Est GFR (MDRD) Non-Af 185, BUN/Creatinine Ratio 50.4 H, Glucose 157 H, Calcium 9.1, Total Bilirubin 0.30, AST 27, ALT 33, Alkaline Phosphatase 125 H, Total Protein 6.0 L, Albumin 1.9 L, Globulin 4.1, Albumin/Globulin Ratio 0.5 L Micro: Microbiology 03/11/21 03:08 Blood Culture (Wb) #2 - Anticubital Left Blood Culture - Preliminary No growth in 48 hours. 03/11/21 02:40 Blood Culture (Wb) - Anticubital Left Blood Culture - Preliminary No growth in 48 hours. 03/11/21 02:37 Nasal Secretion SARS-CoV-2 Antigen (Rapid) - Final SARS-CoV-2 (COVID 19) Physical Exam Narrative Physical exam: General: Alert, Oriented x3, Cooperative, No apparent distress, appears very frail, on 2 L of oxygen HEENT: Atraumatic Oral: Moist Mucosa Neck: Supple Lungs: Clear to auscultation Cardiovascular: HS I+II, regular, no murmurs Abdomen: Bowel Sounds Present, Soft, Non Tender Extremities: No edema Assessment & Plan Assessment/Plan (1) Acute and chronic respiratory failure with hypoxia: (2) Pneumonia due to 2019 novel coronavirus: PLAN: 1. Acute on chronic hypoxic respiratory failure secondary to acute COVID 19 pneumonia, On 4 L of oxygen Continue on Decadron, remdesivir as well as breathing treatment 2. Acute left ankle ulcers, seen by podiatry, no signs of sepsis 3. Decubitus ulcers, unstageable, present on admission, wound RN consulted 4. 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 Rest of chronic medical conditions including Hypertension, chronic atrial fibrillation Meds reviewed:on amiloride/HCTZ 6. Debility related to the above, PT and OT to evaluate and treat Charges/Coding Visit Charges Inpatient E&M: 59499 Subs Hosp L2
--- NOTE | 2021-03-13 15:52 | NURSING ---
ORION FERNANDO, CALLED IN VOICING CONCERNS ABOUT PT BEING D/C'D TO HIS HOME WHEN DISCHARGE COMES. STATES THE CAREGIVER THAT WAS HIRED IS ALSO CARING FOR AN IMMUNOCOMPROMISED FAMILY MEMBER. HE IS ASKING IF PT CAN BE DISCHARGED TO TCU WHEN READY. THIS NURSE UPDATED CHRISTIANA SENIOR WIND TURBINE TECHNICIAN. CHRISTIANA STATES SHE WILL CALL KASSIE TOMORROW TO DISCUSS PLANS AND OPTIONS.
--- NOTE | 2021-03-13 15:57 | CASEMGMT ---
Social Work Note SW spoke with RN. Pt's son and HCPOA Dionisio called in requesting pt discharge to SNF (TCU). SW reviewed chart. Pt is COVID+, tested positive for COVID 03/11/2021. Pt will not be able to go to TCU as pt is COVID+. Pt's only option in [facility] will be [facility]. SW is leaving for the day, will speak with Dionisio tomorrow. Erica Linda WATCH ENGINEER, POULTRY FARMWORKER
[2021-03-13] MEDS: HYDROcodone Bitartrate/Apap 5/325 Tablet PO (18:59)
[2021-03-13] MEDS: Ondansetron 4 MG/2 ML Vial IV (18:59)
[2021-03-13] MEDS: hydrALAZINE 20 MG/ML Vial IV (18:59)
[2021-03-14] VITALS (12 sets, daily range): BP systolic 137–168; BP diastolic 67–88; PULSE 54–89; RESP 18–22; TEMP 36.1–36.6; O2SAT 87–95
[2021-03-14] MEDS: Ipratropium/Albuterol Sulfate 3 ML AMPUL.NEB INHALATION ×4 (00:59→19:30)
[2021-03-14] MEDS: Heparin Injection (Vial) 5,000 UNIT/ML VIAL 5000 UNIT SC ×3 (06:13→20:38)
[2021-03-14 07:09] LABS: Hematocrit 33.9 % (37-47); Hemoglobin 10.9 g/dL (12.0-15.0); Mean Corp Hgb Conc 32.2 g/dL (32-36); Mean Corpuscular Volume 90.2 fL (81-99); Mean Platelet Vol. 9.8 fl (6.2-12.0); Platelet Count 407 K/mm3 (150-450); RBC Distribution Width CV 17.2 % (11.6-14.6); RBC Distribution Width SD 54.9 fl (35.1-43.9); Red Blood Count 3.76 M/mm3 (4.2-5.4); White Blood Count 23.8 K/mm3 (4.4-11.0)
[2021-03-14 07:40] LABS: ALB/GLOB Ratio 0.4 RATIO (0.9-2.4); AST(SGOT) 53 U/L (15-37); Alanine Aminotransfer ALT/SGPT 52 U/L (13-56); Albumin, Serum 1.8 g/dL (3.2-5.0); Alkaline Phosphatase 130 U/L (45-117); Anion Gap 8 (5-15); BUN 17 mg/dL (7-18); BUN/Creat Ratio 55.7 RATIO (10-20); Calcium,Total 9.6 mg/dL (8.5-10.1); Chloride 98 mmol/L (98-107); EST Glomerular Filtration Rate 222 mL/min (>60); Est Glom Filt Rate - Afr Amer 269 mL/min (>60); Estimated Creatinine Clearance 28.49 ml/min; Glucose 172 mg/dL (74-106); Potassium 3.5 mmol/L (3.5-5.1); Protein, Total 6.8 g/dL (6.4-8.2); Sodium Level 137 mmol/L (136-145)
[2021-03-14] MEDS: dilTIAZem CD 120 MG Capsule PO (09:40)
[2021-03-14] MEDS: 0.9% Saline Lock 10 ML Syringe IV (09:40)
[2021-03-14] MEDS: Nadolol 40 MG Tablet PO (09:40)
[2021-03-14] MEDS: Collagenase 30gm Tube 1 APPLIC TOPICAL (09:41)
[2021-03-14] MEDS: Aspirin 81 MG TAB.CHEW PO (09:41)
[2021-03-14] MEDS: dexAMETHasone 4 MG/ML Vial 6 MG IV (09:41)
[2021-03-14] MEDS: hydrALAZINE 20 MG/ML Vial IV (09:47)
--- NOTE | 2021-03-14 10:28 | CASEMGMT ---
Social Work Note GILBERTO placed a call to pt's son Dionisio to discuss discharge plans. Dionisio confirms he was wanting pt to go to TCU. GILBERTO started to tell Dionisio that TCU is not able to accept pt as pt is COVID+. Dionisio states he will need to call this worker back as he is busy right now. Plan: LORENE Linda BLEACH RANGE OPERATOR, CONTINUOUS IMPROVEMENT MANAGER
--- NOTE | 2021-03-14 11:15 | CASEMGMT ---
Social Work Note GILBERTO received message to call Dionisio back. GILBERTO placed a call to pt's son Dionisio to discuss discharge plans. GILBERTO informed Dionisio that TCU is not an option as they are not taking COVID+ pt's. Dionisio asked about pt getting retested and see if pt is now negative. GILBERTO informed Dionisio that that is not really an option as pt just tested positive for COVID 03/11/2021, will likely be positive still. GILBERTO informed Dionisio that if he wants pt to go to SNF, the only SNF in [facility] that is accepting COVID+ pt's is [facility]. Outside of [facility] the only SNF accepting COVID+ pt's are in the [facility]. Dionisio states that he will need to speak to this to continue discussion of discharge plans. GILBERTO informed Dionisio that this worker stranding machine operator CM is who he can speak to regarding discharge plans. Dionisio states understanding. GILBERTO and SAM SÁNCHEZ to continue to follow. Erica Linda REDEVELOPMENT MANAGER, BROOM BUNDLER
[2021-03-14] MEDS: HYDROcodone Bitartrate/Apap 5/325 Tablet PO (11:23)
--- NOTE | 2021-03-14 11:26 | PN.HOSP_ITS ---
Subjective Subjective Follow-up with acute hypoxic respiratory failure/COVID-19 pneumonia; Patient was seen and examined. She is on 3 L of oxygen. Denies any fever or chills. Objective Data Objective Data Vital Signs: Vital Signs Temp Pulse Resp BP Pulse Ox 97.9 F 81 18 168/81 H 87 03/14/21 09:36 03/14/21 09:47 03/14/21 09:36 03/14/21 09:47 03/14/21 11:24 Oxygen Flow Rate (L/min) [ 5 AMBULATING with Oxygen #3] Oxygen Flow Rate (L/min) [ 4 AMBULATING with Oxygen #2] Oxygen Flow Rate (L/min) [ 3 AMBULATING with Oxygen #1] Oxygen Flow Rate (L/min) [At 3 REST with Oxygen] Oxygen Flow Rate (L/min) 3 Oxygen Delivery Method Nasal Cannula Weight: 40.9 kg Body Mass Index (BMI) 16.0 Intake & Output: Intake and Output for Last 24 Hours 03/12/21 03/13/21 03/14/21 23:59 23:59 23:59 Intake Total 362 / 362 702 / 702 150 / 150 Output Total 700 / 700 Balance 362 / 362 2 / 2 150 / 150 Medical Nutrition Assessment Dietitian: Malnutrition Criteria Met Start: 03/11/21 11:22 Freq: Status: Active Protocol: Document 03/13/21 16:14 RMA (Rec: 03/13/21 16:14 RMA [id number]) Nutrition Malnutrition Evidence of Malnutrition Exists Yes Malnutrition (severe): Acute Illness/Injury Evidenced By Suboptimal Energy Intake ( Severe),Weight Loss (Severe) Intake Problem Inadequate Oral Intake Etiology related to poor appetite and weakness Signs/Symptoms as evidenced by taking less than 50% meals and BMI 16.0 Status Active Problem Clinical Problem Acute Disease or Injury Related Malnutrition Etiology Severe protein-calorie malnutrition in the context of acute illness related to inadequate oral intake, poor appetite and weakness Signs/Symptoms as evidenced by ~5% wt loss x 1-2 months, BMI 16.0, PO meeting less than 50% estimated nutrition needs Status Active Problem Recommendation Dietitian Recommendations/Changes Continue regular diet with Ensure Enlive BID and Pal BID for wound healing. Will add fortified pudding or magic cup w/ meals. Adjust ONS as needed to optimize PO and prevent further wt loss. Lab / Micro Data Result Diagrams: 03/14/21 06:53 03/14/21 06:53 Labs: Laboratory Results - last 24 hr 03/13/21 10:23: Sodium 138, Potassium 3.5, Chloride 96 L, Carbon Dioxide 37.0 H, Anion Gap 5, BUN 18, Creatinine 0.36 L, Estim Creat Clear Calc 28.49, Est GFR (MDRD) Af Amer 224, Est GFR (MDRD) Non-Af 185, BUN/Creatinine Ratio 50.4 H, Glucose 157 H, Calcium 9.1, Total Bilirubin 0.30, AST 27, ALT 33, Alkaline Phosphatase 125 H, Total Protein 6.0 L, Albumin 1.9 L, Globulin 4.1, Albumin/Globulin Ratio 0.5 L 03/14/21 06:53: WBC 23.8 H, RBC 3.76 L, Hgb 10.9 L, Hct 33.9 L, MCV 90.2, MCH 29.0, MCHC 32.2, RDW Std Deviation 54.9 H, RDW Coeff of Pk 17.2 H, Plt Count 40 7, MPV 9.8 03/14/21 06:53: Sodium 137, Potassium 3.5, Chloride 98, Carbon Dioxide 31.0, Anion Gap 8, BUN 17, Creatinine 0.30 L, Estim Creat Clear Calc 28.49, Est GFR (MDRD) Af Amer 269, Est GFR (MDRD) Non-Af 222, BUN/Creatinine Ratio 55.7 H, Glucose 172 H, Calcium 9.6, Total Bilirubin 0.40, AST 53 H, ALT 52, Alkaline Phosphatase 130 H, Total Protein 6.8, Albumin 1.8 L, Globulin 5.0 H, Albumin/Globulin Ratio 0.4 L Micro: Microbiology 03/11/21 03:08 Blood Culture (Wb) #2 - Anticubital Left Blood Culture - Preliminary No growth in 48 hours. 03/11/21 02:40 Blood Culture (Wb) - Anticubital Left Blood Culture - Preliminary No growth in 48 hours. 03/11/21 02:37 Nasal Secretion SARS-CoV-2 Antigen (Rapid) - Final SARS-CoV-2 (COVID 19) Physical Exam Narrative Physical exam: General: Alert, Oriented x3, Cooperative, No apparent distress, appears very fra il, on 2 L of oxygen HEENT: Atraumatic Oral: Moist Mucosa Neck: Supple Lungs: Clear to auscultation Cardiovascular: HS I+II, regular, no murmurs Abdomen: Bowel Sounds Present, Soft, Non Tender Extremities: No edema Assessment & Plan Assessment/Plan (1) Acute and chronic respiratory failure with hypoxia: (2) Pneumonia due to 2019 novel coronavirus: PLAN: 1. Acute on chronic hypoxic respiratory failure secondary to acute COVID 19 pneumonia, On 3 L of oxygen Continue on Decadron, remdesivir as well as breathing treatment 2. Acute left ankle ulcers, seen by podiatry, no signs of sepsis 3. Decubitus ulcers, unstageable, present on admission, wound RN consulted 4. Severe protein calorie malnutrition, patient looks cachetic, has evidence of loss of fat and muscle in arms and thighs, BMI 16, Health And Social Care Teacher consulted, offered nutritional supplements( Ensure), patient has been refusing. 5. Rest of chronic medical conditions including Hypertension, chronic atrial fibrillation Meds reviewed:on amiloride/HCTZ 6. Debility related to the above, PT and OT to evaluate and treat Charges/Coding Visit Charges Inpatient E&M: 98141 Subs Hosp L2
--- NOTE | 2021-03-14 13:09 | CASEMGMT ---
Addendum entered by Erica Linda 03/14/21 13:32: GILBERTO then updated that pt's son Dionisio and his spoke with [facility] and they are accepting COVID+ pt's. SW placed a call to [facility] and spoke with staff. They confirmed they spoke with pt's family and would like referral sent to them regarding pt's information. Staff states it just depends case by case if they accept COVID pt's or not. SW faxed referral to [facility] [phone]. Original Note: Social Work Note SW updated that pt's son Addy is at [facility] requesting to speak to SW regarding SNF placement. SW in to speak with pt and Addy. SW introduced self and role at [facility]. Addy state she spoke with Dionisio about the SNF in [place] for pt. Patient was provided a list of SNF providers including quality and resource use data and consistent with the patient?s preferred geographic region, medical needs, and insurance network. GILBERTO informed Addy that [facility] ([place] is the only SNF [facility] taking COVID+ pt's and the only other SNF are in [facility]. SW spoke with pt about SNF and if she is agreeable. Pt states not really, but then states ok. GILBERTO explained Medicare coverage at SNF and referral process for SNF. Addy states understanding. Addy asked if pt could return home if she is able to isolate. GILBERTO informed Addy that returning home is an option, it comes down to pt's comfort level with pt returning home with COVID. Addy states he brooke call his brother Dionisio and provide update about SNF. GILBERTO placed a call to Adele at [facility] and left message regarding referral. SW faxed referral. Plan: [facility] SNF pending acceptance Erica Linda FLOWER PICKER, RETURNED TELEPHONE EQUIPMENT APPRAISER
--- NOTE | 2021-03-14 15:12 | CHAPLAIN ---
Type of Pastoral Visit ___ Initial Visit ___ Follow-up Visit ___ On-call Visit ___ General Patient Visit ___ Spiritual Assessment ___ Family Conference ___ Bereavement ___ Rapid Response ___ Code Blue ___ Other (describe below) Pastoral Care Referral From ___ Patient ___ Family ___ Nurse ___ Physician ___ Supervisor Lending Activities ___ Director Of Music Therapy ___ Other (describe below) Sacrament/Intervention ___ Active listening ___ Anointing ___ Hindu ___ Bereavement ___ Communion ___ Emeli exploration ___ ___ Life review ___ Prayer ___ Reconciliation ___ Sacrament of Sick ___ Supportive presence ___ Wedding ___ Other (describe below) Pastoral Comments phone call made into isolation room and there was no answer and no ability to leave a message
--- NOTE | 2021-03-14 15:21 | CASEMGMT ---
Addendum entered by Erica Linda 03/14/21 16:46: SW placed a call to pt's son Dionisio to update on discharge plans. Dionisio states he is aware that [facility] cannot accept pt until the . GILBERTO informed Dionisio that this worker does have a referral out to [facility] in [place] and is waiting to hear back from them if they can accept pt or not. Dionisio states understanding. Original Note: Social Work Note SW received message from Mishel at [facility] stating they can accept pt on March 21 (10 days post positive test). SW waiting for call back from [facility] regarding referral. Plan: SNF pending acceptance Erica Linda FIBER ANALYST, RELOCATION SERVICES SPECIALIST
[2021-03-15] VITALS (9 sets, daily range): BP systolic 129–176; BP diastolic 65–92; PULSE 66–74; RESP 16–24; TEMP 36.6–36.9; O2SAT 84–98
[2021-03-15] MEDS: Heparin Injection (Vial) 5,000 UNIT/ML VIAL 5000 UNIT SC ×2 (05:33→15:26)
[2021-03-15 06:42] LABS: Hemoglobin 10.4 g/dL (12.0-15.0); Mean Corp Hgb Conc 31.5 g/dL (32-36); Mean Corpuscular Hgb 28.6 pg (27.0-32.0); Mean Corpuscular Volume 90.7 fL (81-99); Mean Platelet Vol. 10.4 fl (6.2-12.0); Platelet Count 427 K/mm3 (150-450); RBC Distribution Width CV 17.2 % (11.6-14.6); RBC Distribution Width SD 56.1 fl (35.1-43.9); Red Blood Count 3.64 M/mm3 (4.2-5.4); White Blood Count 27.8 K/mm3 (4.4-11.0)
[2021-03-15 07:10] LABS: ALB/GLOB Ratio 0.3 RATIO (0.9-2.4); AST(SGOT) 82 U/L (15-37); Alanine Aminotransfer ALT/SGPT 79 U/L (13-56); Albumin, Serum 1.6 g/dL (3.2-5.0); Alkaline Phosphatase 150 U/L (45-117); Anion Gap 6 (5-15); BUN 20 mg/dL (7-18); BUN/Creat Ratio 58.5 RATIO (10-20); Calcium,Total 9.2 mg/dL (8.5-10.1); Chloride 100 mmol/L (98-107); Creatinine, Serum 0.34 mg/dL (0.55-1.02); EST Glomerular Filtration Rate 195 mL/min (>60); Est Glom Filt Rate - Afr Amer 236 mL/min (>60); Estimated Creatinine Clearance 28.49 ml/min; Globulin 4.8 g/dL (2.2-4.2); Glucose 168 mg/dL (74-106); Potassium 3.2 mmol/L (3.5-5.1); Protein, Total 6.4 g/dL (6.4-8.2); Sodium Level 139 mmol/L (136-145)
[2021-03-15 08:14] LABS: Magnesium 2.4 mg/dL (1.6-2.6)
--- NOTE | 2021-03-15 08:21 | CASEMGMT ---
Social Work Note SW received email from Adele at [facility] stating they can accept pt but their COVID unit is currently full, will not have any beds until early next week. SW to call other SNFs to inquire about bed availability for COVID pt's. Erica Linda CROWN AND BRIDGE DENTAL LAB TECHNICIAN, MANAGED SERVICES SALES CONSULTANT
--- NOTE | 2021-03-15 08:52 | CASEMGMT ---
Late entry for 03/14/2021- Received tc from Mayte at [facility], pt is active with them for SN, PT and OT.
[2021-03-15] MEDS: Collagenase 30gm Tube 1 APPLIC TOPICAL (09:05)
--- NOTE | 2021-03-15 09:19 | CASEMGMT ---
Addendum entered by Erica Linda 03/15/21 10:03: GILBERTO received email from Adele at [facility] stating a bed opened up today on their COVID unit and they can accept pt today. SW updated physician. GILBERTO placed a call to pt's son Dionisio and updated him that [facility] is able to accept pt today, pt to likely be discharged to SNF today. SW informed Dionisio that once pt reaches 10 days post positive test, pt will have more options on SNF if he would like to move pt then. Dionisio states understanding. GILBERTO updated Adele at [facility] that pt will likely be discharged today. Adele requests transportation between 1-2:00pm. Plan: [facility] skilled Original Note: Social Work Note SW called SNF that are accepting COVID+ pt's. Analia Valencia in [place] - Message left for Carolyn in admissions. [facility] [place] - as of 02/16 no longer taking COVID+ pt's. [facility] - they have one bed available but it is likely going to be sold today to someone else. [facility] - [facility] beds on COVID unit. SW to continue to work on SNF placement for pt. Erica Linda CHAMBER OF COMMERCE DIVISION MANAGER, LIBRARY HISTORIAN
[2021-03-15] MEDS: Nadolol 40 MG Tablet PO (10:08)
[2021-03-15] MEDS: dilTIAZem CD 120 MG Capsule PO (10:08)
[2021-03-15] MEDS: 0.9% Saline Lock 10 ML Syringe IV (10:08)
[2021-03-15] MEDS: Aspirin 81 MG TAB.CHEW PO (10:08)
[2021-03-15] MEDS: Potassium Chloride Oral Tablet 20 MEQ 60 MEQ PO (10:08)
[2021-03-15] MEDS: dexAMETHasone 4 MG/ML Vial 6 MG IV (10:08)
[2021-03-15] MEDS: HYDROcodone Bitartrate/Apap 5/325 Tablet PO (10:21)
--- NOTE | 2021-03-15 10:55 | PCM.TXEXTCAR ---
Diet 03/11/21 06:13 Diet: Regular - General Food consistency:: Regular Liquid Consistency:: Regular/Thin Type of Dietary Supplement:: Ensure Enlive Is pt able to select menu?: Yes Diet Comments: Pal&240ml ES w/break;Fort pudd &240mlES w/lunch;magic cup &Pal w/dinner Routine Orders/Code Status O2 Liters per Minute: 3 O2 Frequency: Continuous Keep PO Greater than or Equal to (%): 94 Routine Lab Work: CBC (within 3 days) and BMP (within 3 days) Code Status: DNRCC-A (no intubation) Wound(s) left ankle: Wound Type: Neuropathic/Diabetic Foot Ulcer Dressing Change: santyl with dry dressing left tejada: Wound Type: Abrasion coccyx: Wound Type: Pressure Injury Dressing Change: Mepilex Therapies Weight Bearing: Weight bearing as tolerated Physical Therapy: Eval and Treat Occupational Therapy: Eval and Treat Problem/Diagnosis (1) Acute and chronic respiratory failure with hypoxia: Status: Chronic (2) Pneumonia due to 2019 novel coronavirus: Status: Acute Allergies/Procedures Done in Hospital Allergies levofloxacin [From Levaquin] Allergy (Verified 03/11/21 02:25) Other Sulfa (Sulfonamide Antibiotics) Allergy (Verified 03/11/21 02:25) Swelling narcotics Adverse Reaction (Mild, Uncoded 03/11/21 02:25) Vomiting Procedures: None Type of Care/Length of Stay Estimated LOS: Convalescent Care Less Than 30 days Type of Care Needed: Skilled Rehab Potential: Good Prognosis: Fair Additional Orders/Day of Discharge Day of Discharge: 03/15/21 Dietary and Speech Recommendations Dietitian Recommendations/Changes: Continue regular diet with Ensure Enlive BID and Pal BID for wound healing. Will add fortified pudding or magic cup w/ meals. Adjust ONS as needed to optimize PO and prevent further wt loss. Discharge Plan Admission Admit Date/Time: 03/11/21 06:11 Primary Reason for Your Visit: Acute hypoxic respiratory failure/acute COVID-19 pneumonia Attending Provider: Kyleigh Waters Primary Care Provider: Rosetta Rapp RADIOLOGY ADMINISTRATOR Consulting Providers: Sharona Valentine Discharge Orders/Prescriptions Prescriptions: New aspirin 81 mg Tablet,Chewable 81 mg PO DAILY Qty: 30 RF: 0 Santyl 250 unit/gram Ointment 1 applic topical DAILY Qty: 0 RF: 0 nystatin 100,000 unit/mL Suspension 500,000 unit PO 4X/DAY 7 Days Qty: 0 RF: 0 dexamethasone 6 mg tablet 6 mg PO DAILY Qty: 6 RF: 0 Continued amiloride-hydrochlorothiazide 5-50 mg tablet 0.5 tab PO QDAY Qty: 90 RF: 2 nadolol 40 mg tablet 40 mg PO QDAY Qty: 90 RF: 3 coenzyme Q10 [Co Q-10] 100 MG capsule 100 mg PO DAILY RF: 0 diltiazem HCl [Cardizem CD] 120 mg Capsule,Extended Release 24hr 120 mg PO DAILY RF: 0 albuterol sulfate 90 mcg/actuation Hfa Aerosol Inhaler 2 puff INHALATION Q6H PRN (Reason: short) RF: 0 Referrals / Follow Up: Rosetta Rapp NP, RADIOLOGY ADMINISTRATOR-C [Primary Care Provider] - Within 2 Weeks Disposition Disposition (needs filled in before D/C Order can be placed): [facility]
--- NOTE | 2021-03-15 10:59 | DS.PCM_ITS ---
Providers Date of Admission: 03/11/21 Date of Discharge: 03/15/21 Primary Care Physician: Rosetta Rapp, KAYLEIGH Consultations 03/11/21 12:15 Consult: Onc/Wound/novelties sales representative Routine Comment: PRESSURE INJURY COCCYX & L OUTER ANKLE 03/12/21 16:34 Consult: Podiatry Routine Consulting Provider: Sharona Valentine Reason for Consult: Left heel unstageable decubitus ulcer EMERGENT Consult: No MD Notified: Yes Date Notified: 03/12/21 Time Notified: 18:06 Method of Notification: Text Reason For Visit: COVID 19 PNEUMONIA Diagnosis Discharge Diagnosis (1) Acute and chronic respiratory failure with hypoxia: Status: Chronic Code(s): J96.21 - Acute and chronic respiratory failure with hypoxia (2) Pneumonia due to 2019 novel coronavirus: Status: Acute Code(s): U07.1 - COVID-19; J12.82 - Pneumonia due to coronavirus disease 2019 (3) Anxiety: Status: Chronic Code(s): F41.9 - Anxiety disorder, unspecified (4) Declining functional status: Status: Acute Code(s): R53.81 - Other malaise (5) Ulcer of left ankle: Status: Chronic Code(s): L97.329 - Non-pressure chronic ulcer of left ankle with unspecified severity (6) Severe protein-calorie malnutrition: Status: Acute Code(s): E43 - Unspecified severe protein-calorie malnutrition (7) 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 [Santyl] 1 applic TOPICAL DAILY #0 g 03/15/21 dexamethasone 6 mg PO DAILY #6 tab 03/15/21 nystatin 500,000 unit PO 4X/DAY 7 Days #0 ml 03/15/21 Hospital Course Operations None Procedures None Summary of Care Provided Minutes Spent on Discharge: 40 Hospital Course: 80-year-old female with past medical history of chronic respiratory failure, on 2 L home oxygen, recently discharged from [facility] for pneumonia. Patient has been vaccinated against coronavirus. Her admitting x-ray showed bilateral multilobar pneumonia. A COVID-19 test was positive. She was monitored on the [facility] floor. She received dexamethasone, remdesivir. She had evidence of severe protein calorie malnutrition, brushing operator consulted, was on supplements. Patient had electrolyte imbalances that were replaced. She continued to improve. She was seen by PT and OT and skilled for discharge to intermediate facility. Patient will complete 10 days of Decadron. Physical Exam Narrative Physical exam: General: Alert, Oriented x3, Cooperative, No apparent distress, appears very frail, on 3 L of oxygen HEENT: Atraumatic Oral: Moist Mucosa Neck: Supple Lungs: Clear to auscultation Cardiovascular: HS I+II, regular, no murmurs Abdomen: Bowel Sounds Present, Soft, Non Tender Extremities: No edema Medical Records Data Medical Nutrition Assessment Dietitian: Malnutrition Criteria Met Start: 03/11/21 11:22 Freq: Status: Active Protocol: Document 03/13/21 16:14 RMA (Rec: 03/13/21 16:14 RMA [id number]) Nutrition Malnutrition Evidence of Malnutrition Exists Yes Malnutrition (severe): Acute Illness/Injury Evidenced By Suboptimal Energy Intake ( Severe),Weight Loss (Severe) Intake Problem Inadequate Oral Intake Etiology related to poor appetite and weakness Signs/Symptoms as evidenced by taking less than 50% meals and BMI 16.0 Status Active Problem Clinical Problem Acute Disease or Injury Related Malnutrition Etiology Severe protein-calorie malnutrition in the context of acute illness related to inadequate oral intake, poor appetite and weakness Signs/Symptoms as evidenced by ~5% wt loss x 1-2 months, BMI 16.0, PO meeting less than 50% estimated nutrition needs Status Active Problem Recommendation Dietitian Recommendations/Changes Continue regular diet with Ensure Enlive BID and Pal BID for wound healing. Will add fortified pudding or magic cup w/ meals. Adjust ONS as needed to optimize PO and prevent further wt loss. Weight / BMI Weight Weight: 40.9 kg Body Mass Index (BMI) 16.0 ABG / Lab / Microbiology Data Result Diagrams: 03/15/21 06:06 03/15/21 06:06 Laboratory: Laboratory Results - last 24 hr 03/15/21 06:06: WBC 27.8 H, RBC 3.64 L, Hgb 10.4 L, Hct 33.0 L, MCV 90.7, MCH 28.6, MCHC 31.5 L, RDW Std Deviation 56.1 H, RDW Coeff of Pk 17.2 H, Plt Count 427, MPV 10.4 03/15/21 06:06: Sodium 139, Potassium 3.2 L, Chloride 100, Carbon Dioxide 33.0 H , Anion Gap 6, BUN 20 H, Creatinine 0.34 L, Estim Creat Clear Calc 28.49, Est GFR (MDRD) Af Amer 236, Est GFR (MDRD) Non-Af 195, BUN/Creatinine Ratio 58.5 H, Glucose 168 H, Calcium 9.2, Total Bilirubin 0.60, AST 82 H, ALT 79 H, Alkaline Phosphatase 150 H, Total Protein 6.4, Albumin 1.6 L, Globulin 4.8 H, Albumin/Globulin Ratio 0.3 L 03/15/21 06:06: Magnesium 2.4 Microbiology: Microbiology 03/11/21 03:08 Blood Culture (Wb) #2 - Anticubital Left Blood Culture - Preliminary No growth in 48 hours. 03/11/21 02:40 Blood Culture (Wb) - Anticubital Left Blood Culture - Preliminary No growth in 48 hours. 03/11/21 02:37 Nasal Secretion SARS-CoV-2 Antigen (Rapid) - Final SARS-CoV-2 (COVID 19) D/C Instructions Discharge Diet: No restrictions Meaningful Use Info Meaningful Use Diagnoses (Choose all that apply): None applicable Discharge Plan Admission Admit Date/Time: 03/11/21 06:11 Primary Reason for Your Visit: Acute hypoxic respiratory failure/acute COVID-19 pneumonia Attending Provider: Kyleigh Waters Primary Care Provider: Rosetta Rapp NP Consulting Providers: Sharona Valentine Discharge Orders/Prescriptions Prescriptions: New aspirin 81 mg Tablet,Chewable 81 mg PO DAILY Qty: 30 RF: 0 Santyl 250 unit/gram Ointment 1 applic topical DAILY Qty: 0 RF: 0 nystatin 100,000 unit/mL Suspension 500,000 unit PO 4X/DAY 7 Days Qty: 0 RF: 0 dexamethasone 6 mg tablet 6 mg PO DAILY Qty: 6 RF: 0 Continued amiloride-hydrochlorothiazide 5-50 mg tablet 0.5 tab PO QDAY Qty: 90 RF: 2 nadolol 40 mg tablet 40 mg PO QDAY Qty: 90 RF: 3 coenzyme Q10 [Co Q-10] 100 MG capsule 100 mg PO DAILY RF: 0 diltiazem HCl [Cardizem CD] 120 mg Capsule,Extended Release 24hr 120 mg PO DAILY RF: 0 albuterol sulfate 90 mcg/actuation Hfa Aerosol Inhaler 2 puff INHALATION Q6H PRN (Reason: short) RF: 0 Referrals / Follow Up: Rosetta Rapp NP, DISPATCH SPECIALIST-C [Primary Care Provider] - Within 2 Weeks Disposition Disposition (needs filled in before D/C Order can be placed): [facility] Charges/Coding Visit Charges Inpatient E&M: 04221 Disch Hosp
--- NOTE | 2021-03-15 12:31 | CASEMGMT ---
Addendum entered by Erica Linda 03/15/21 13:21: GILBERTO updated that pt's son Addy is currently at [facility]. GILBERTO in to speak with pt and Addy. RN present in room and answered Addy's Medical questions. Addy asked about Hospice and if pt was Hospice appropriate. GILBERTO educated Addy on Hospice and how at this time, Hospice has not been discussed for pt. GILBERTO informed Addy that pt is currently stable, has improved, medically ready for discharge to SNF. GILBERTO informed Addy that once pt is at SNF and if pt declines, then their medical billing service can discuss Hospice with the family. GILBERTO informed Addy that once pt reaches March 21 (10 days post positive test) pt will have more options for SNF as more SNF will accept COVID+ pt's once they are 10 days post positive test. Addy asked about taking pt home and only have one person care for pt. GILBERTO informed Addy that again that is a family decision and HHC could be arranged but RN would only be out about 1x a week. Addy asked if he could call some family members regarding taking pt home and this worker informed Addy that he could. Addy on the phone with two family members, all decided that pt should discharge to [facility] today. GILBERTO informed pt and Addy that once pt gets to [facility] family can continue to work on getting pt home if that is the discharge plan eventually. Addy and pt state understanding. Plan: [facility] skilled under convalescent stay with Physician's transporting pt via cot at 1:00pm Original Note: Social Work Note GILBERTO faxed completed discharge paperwork to [facility] including transfer to extended care facility, signed medication list, any scripts, COVID test/tool and convalescent 7000. Original in SNF folder and copy on pt's chart. GILBERTO completed convalescent 7000 in [facility]. Original in SNF folder and copy on pt's chart. GILBERTO spoke with RN, pt to transport via cot. GILBERTO accessed trip assist and arranged transportation via cot for 1:00pm. Transportation form completed and placed on SNF folder and copy on pt's chart. GILBERTO updated Adele at [facility] of transportation time. RN updated on transportation time. SAM SÁNCHEZ is gowning up for COVID rooms, GILBERTO asked RN CM to update pt on discharge and transportation time to [facility]. SAM CM to do so. GILBERTO placed a call to pt's son Dionisio and updated him on discharge and transportation time. Dionisio states understanding. Plan: [facility] skilled under convalescent stay with Physician's transporting pt via cot at 1:00pm Erica HUYNH, DOWEL PIN MAN
[2021-03-15] MEDS: NYSTATIN 500,000 UNIT/5 ML UDC 500000 UNIT PO ×2 (12:45→18:42)
--- NOTE | 2021-03-15 13:45 | CASEMGMT ---
Social Work Note Physicians is at [facility] to tranport pt and pt's son Addy is telling them to not transport pt to [facility] as pt is now going home. SW back in to speak with pt and Addy. Addy and pt confirm that pt will return home to pt's home and Addy will be moving in with her to provide 24/7 care. GILBERTO stressed the importance to Addy that he will need to be with pt 24/ to assist pt. Addy states he understands and states he will be there 24/. Addy states he has spoken to his and his brother Dionisio about taking pt home and all are agreeable to plan. GILBERTO asked Addy if he can call his brother Dionisio (who is the [employer]CP[employer]) so that this worker can speak to him too. Addy called Dionisio and placed Dionisio on speaker phone. SW asked Dionisio if he is aware of the plan for pt to return to her own home and have Addy move in with her. Dionisio states he is aware and states whatever the pt wants to do. Pt agreeable to going back to her home and having Addy move in with her. SW informed Dionisio, Addy, and pt that it will be a few hours before pt can discharge home as walking pulse oxygen test needs to be completed and HHC will need to be confirmed. Dionisio, Addy and pt states understanding. Addy states he will head to pt's home soon and wait for her to arrive. Addy states pt will need transportation arranged for home and he as already spoken to Physicians about how to get into pt's home. Pt confirms that she will be going home to her house in [place]. SW out of pt's room and informed Physician's to disregard transportation at this time as pt is going home and home going needs need to be arranged. Physicians state understanding. GILBERTO updated RN CM who states pt is already active with HHC. SW updated RN and physicians. SW updated Adele at [facility] that pt is now going home. SW to arrange transportation once ambulatory pulse oxygen testing is completed. Plan: Home with Resumption of HHC, O2 and pt's son Addy staying 24/7 with pt. Erica Linda STAGE SET DESIGNER, TESTER VIBRATOR EQUIPMENT
--- NOTE | 2021-03-15 15:23 | CASEMGMT ---
Addendum entered by Monique Abebe 03/15/21 16:37: Pt requires change in O2 script, faxed updated script to [facility] at this time. Original Note: Pt not to dc home. TC to [facility], spoke with Marilin. She is aware that pt is dc'ing. Inquired to see if there is a DRY JANITOR on staff. They currently do not have one. Referral faxed for [facility].
--- NOTE | 2021-03-15 17:30 | CASEMGMT ---
Social Work Note GILBERTO spoke with RN CM, oxygen script is completed and resumption order for HHC is complete. Pt is good to discharge. GILBERTO accessed trip assist and earliest physicians can transport pt is 8:30pm. Transportation form completed for previous transport and is on SNF folder and on the secretaries desk. GILBERTO updated RN on transportation time. GILBERTO placed a call to pt's son Addy and updated him that the earliest transportation can transport pt is 8:30pm. Addy asked what happened to the 4:00pm transport time. GILBERTO informed Addy that that transportation time was never concerned and this worker had to wait for home going needs to be arranged before transportation could be arranged. GILBERTO informed Addy that he could always come back to [facility] to transport pt home and Addy states he is already at pt's house, will be waiting for pt at her house, and cannot return to [facility] to transport pt. Addy confirms pt's address is [address] [place] [address]. [place], [place]. GILBERTO placed a call to pt's son Dionisio and updated him on transportation time. Dionisio asked if his brother Addy knew about transportation time and this worker informed Dionisio that Addy is aware. GILBERTO asked MANAGER IN TRAINING to update pt on transportation time the next time she is in pt's room, MANAGER IN TRAINING to do so. Plan: Home with resumption of HHC, O2 and family support with Physician's transporting pt via cot at 8:30pm Erica HUYNH, CHILDREN'S NURSERY ASSISTANT
== END 2021-03-15 20:40 | disposition home health service (06) | DRG 177 ==
LOC: ED 04:19 → MS3 07:12
PROVIDERS: Admitting Provider Internal Medicine; Emergency Provider Emergency Medicine; PCP Nurse Practitioner Adult Health; Visit Provider Internal Medicine
DX: U07.1 COVID-19 (principal); J12.82 Pneumonia due to coronavirus disease 2019; J96.21 Acute and chronic respiratory failure with hypoxia; E43 Unspecified severe protein-calorie malnutrition; I48.20 Chronic atrial fibrillation, unspecified; L89.152 Pressure ulcer of sacral region, stage 2; L89.520 Pressure ulcer of left ankle, unstageable; F41.9 Anxiety disorder, unspecified; R53.81 Other malaise; E87.6 Hypokalemia; I10 Essential (primary) hypertension; M19.90 Unspecified osteoarthritis, unspecified site; M06.9 Rheumatoid arthritis, unspecified; Z66 Do not resuscitate; Z79.82 Long term (current) use of aspirin; Z99.81 Dependence on supplemental oxygen; Z79.899 Other long term (current) drug therapy; Z87.891 Personal history of nicotine dependence
CPT/HCPCS: 36415; 71045; 80048; 80053; 83605; 83735; 84484; 85025; 85027; 87040; 87426; 93005; 94640; 94762; 97110; 97162; 97166; 97530; 97535; 97802; 99285; J7050; A4216; J0248; J0295; J2405